=== PATIENT | male | born 1950 | race Caucasian/White ===

== ENCOUNTER → 2020-06-18 08:14 | Outpatient (CLI) | payer MEDICARE, OTHER, SELFPAY ==
--- NOTE | 2020-06-18 08:18 | CT_ITS ---
STUDY: CT ABDOMEN AND PELVIS WITH AND WITHOUT CONTRAST REASON FOR EXAM: Male, 69 years old. GROSS HEMATURIA/HX URINARY CALCULI/UNSPEC ABD PAIN RADIATION DOSAGE (If Supplied By Facility): CTDIvol = ( 17.54 ) mGy, DLP = ( 2187.74 ) mGycm TECHNIQUE: Transaxial images were obtained from the dome of the diaphragm to the symphysis pubis without oral contrast. IV 100mL Isovue-300 was administered. Sagittal and coronal images were reconstructed. Individualized dose optimization techniques were used for this CT. COMPARISON: None. FINDINGS: Minimal degree of increased linear markings in the lateral aspect of the right lower lobe suggestive of mild scarring. The visualized portions of the heart are within normal limits. Normal liver. Normal gallbladder and extrahepatic biliary system. Normal spleen. Normal pancreas. There is symmetric enlargement of the adrenal glands suggesting adrenal hyperplasia. There is a 4.1 mm calculus at the right ureteropelvic junction causing a mild degree of right hydronephrosis and minimal degree of right perinephric stranding. Normal left kidney. There is a small hiatal hernia. Normal small intestine. Normal colon. The appendix is visualized and appears normal. Normal abdominal aorta. Normal inferior vena cava. Normal retroperitoneum. Normal urinary bladder. There is enlargement of the prostate gland. It measures 5.9 cm by 4.5 cm. There is a small umbilical hernia containing fat. There are diffuse degenerative changes of the visualized lumbar spine. Grade 1 anterior listhesis of L5 on S1 with spondylolysis of the pars interarticularis of the L5 vertebrae. CT/CT Abd/Pelvis W/WO Contrast IMPRESSION: 4.1 mm calculus at the right ureteropelvic junction causing mild right hydronephrosis. Prostatic hypertrophy with indentation at the bladder base. Electronically Signed: Ramez Terry MD at 12:59 EDT , Service support ,
[2020-06-18 08:26] LABS: CREATININE FINGERSTICK 1.6 mg/dL (0.70-1.30)
== END ==
PROVIDERS: PCP Family Medicine; Referring Provider Nurse Practitioner Adult Health; Visit Provider Nurse Practitioner Adult Health
DX: R31.0 Gross hematuria (principal); R10.9 Unspecified abdominal pain; Z87.442 Personal history of urinary calculi
CPT/HCPCS: 74178; Q9967

== ENCOUNTER 2020-07-03 10:38 | Day surgery (SDC) | payer MEDICARE, OTHER, SELFPAY ==
--- NOTE | 2020-07-03 07:39 | PCM.HP.STD ---
Problem List (1) Obstruction of right ureteropelvic junction (UPJ) due to stone Status: Acute History of Present Illness Date of Admission: 07/03/20 Chief Complaint: Right UPJ stone The patient is a 69 year old male with a history of obstructing stone in the right proximal ureter plan to proceed with cystoscopy right stent placement and right ESWL he understands it may take multiple procedures. Past Medical History Allergies hydrocodone Adverse Reaction (Verified 06/26/20 12:33) Vomiting morphine Adverse Reaction (Verified 06/26/20 12:33) Vomiting Home Medications: Ambulatory Orders Medication Instructions Recorded Aspirin 325 mg PO DAILY 06/26/20 Atorvastatin Calcium [Lipitor] 10 mg PO QHS 06/26/20 Surgical History: no surgical history Smoking Status: Never smoker Tobacco Use: Non-smoker Review of Systems Constitutional: Denies: Chills, Fever, Weight Change HEENT: Denies: Head Aches, Sinus Congestion, Sinus Drainage Cardiovascular: Denies: Chest Pain, Palpitations Respiratory: Denies: Cough, Shortness of breath at rest, Sputum production Gastrointestinal: Denies: Abdominal Pain, Nausea, Vomiting Genitourinary: Denies: Dysuria Musculoskeletal: Denies: Joint Pain, Joint Tenderness Skin: Denies: Rash, Wounds Neurological: Denies: Numbness, Tingling, Focal weakness Psychiatric: Denies: Anxiety, Depression, Homicidal Ideations, Suicidal Ideations Hematologic/ Lymphatic: Denies: Easy Bruising, Easy Bleeding VTE Information - Inpt Only VTE Present on Admission: No VTE Mechan Device Prophylaxis: SCD's - Physical Exam General: Alert, Oriented x3, Cooperative HEENT: Atraumatic, PERRLA, EOMI, Normocephalic Neck: Supple, No JVD, Negative Carotid Bruits Lungs: Clear to auscultation, Normal air movement Cardiovascular: Regular rate, No murmurs Abdomen: Bowel Sounds Present, Soft, Non Tender Extremities: No edema, Capillary Refill Less than 3 Seconds Skin: No rashes, No breakdown Musculoskeletal: No Tenderness to Palpation of Joints or Extremities Neurological: Cranial nerves II-XII grossly intact Psych/Mental Status: Normal Affect, Appropriate Current Medications Cefazolin Sodium 2 gm/ Sodium (Chloride) 110 mls @ 150 mls/hr IV PREOP ONE Stop: 07/03/20 15:13 Assessment/Plan All Active Problems Obstruction of right ureteropelvic junction (UPJ) due to stone (Acute) Plan to proceed with right ESWL and right stent placement.
--- NOTE | 2020-07-03 07:48 | DCINST_ITS ---
Discharge Diet: Light diet - advance as tolerated Discharge Activity: Return to Normal Activity Instructions: Shock Wave Lithotripsy Allergies/Adverse Reactions: Allergies hydrocodone Adverse Reaction (Verified 06/26/20 12:33) Vomiting morphine Adverse Reaction (Verified 06/26/20 12:33) Vomiting Medications to take at Discharge Aspirin 325 mg PO DAILY 06/26/20 Atorvastatin Calcium [Lipitor] 10 mg PO QHS 06/26/20 Orders to be completed after discharge: Abdomen Single View [RAD] Time Frame: 07/03/20, Facility: [facility], Location: [facility] Primary Care Physician: Ruby Pinedo DO [Primary Care Provider] - Test Results: Test results from this visit will be discussed in further detail at your follow- up appointment, if applicable. Please Follow Up With: Rasta Lund MD When: please call to make an appointment.
[2020-07-03] MEDS: Lactated Ringers 1,000 ML 75 ML IV ×2 (07:50→14:34)
--- NOTE | 2020-07-03 10:41 | RAD_ITS ---
STUDY: X-RAY - ABDOMEN/PELVIS REASON FOR EXAM: Male, 69 years old. PREOP RIGHT KIDNEY STONE TECHNIQUE: Two AP supine views of the abdomen and pelvis. COMPARISON: None. FINDINGS: Normal visualized lung bases. There is an unremarkable bowel gas pattern. There is no demonstrated free abdominal air. The visualized liver, spleen and kidneys are grossly normal in size and morphology. There is a stone in the right kidney measures 7 mm. Normal soft tissue structures. Normal visualized osseous structures. RAD/Abdomen Single View IMPRESSION: There is a stone in the right kidney measures 7 mm. Electronically Signed: Kelly Castillo MD at 12:17 EDT Tel , Service support ,
[2020-07-03 11:19] VITALS: BP 135/77; PULSE 75; RESP 16; TEMP 37.2; O2SAT 97; BMI 25.9
--- NOTE | 2020-07-03 13:57 | OP.PCM_ITS ---
Problem List (1) Obstruction of right ureteropelvic junction (UPJ) due to stone Status: Acute Report of Operation Date of Procedure: 07/03/20 Pre-Operative Diagnosis: Right kidney stone Post-Operative Diagnosis: Same Surgery/Procedure Performed:: right ESWL Description of Surgical Findings:: Patient presents to the hospital for treatment of a kidney stone with shockwave lithotripsy. In the preoperative area and x-ray was done to confirm the location of the stone. The x-ray was reviewed and the stone location was reviewed. In the preoperative setting I spoke with the patient regarding the treatment of the stone how the treatment would be conducted and the expectations after surgery. The patient understands there is a risk of bleeding and infection. Also discussed the very rare risk of hematoma or damage to the kidney. We also discussed the risk that the shockwave machine will fail to break the stone adequately and that the patient may need other surgical procedures. We also discussed the possibility that the patient may need a stent after the procedure. After reviewing the procedure with the patient, the patient is signed the consent form all the patient's questions were addressed and was taken back to the operating room for treatment of a kidney stone. Patient was taken back to the operating room, patient was identified by the nursing staff, we identified the side of the treatment and the patient side of treatment had been marked by my initials. The patient underwent general anesthetic and was placed supine on the lithotripter table. We then used fluoro scopy to identify the stone on the right side. We then positioned the patient under the lithotripter and we used triangulation technique to identify the location of the stone and then we made sure that the stone was engaged in the F2 focal point of F2 Donier lithoprior machine. Once the patient was positioned appropriately and the stone was identified and placed in the F2 focal point of the lithotripter machine we then proceeded with shockwave lithotripsy. In the beginning the shockwave was delivered at a rate of 90 shocks per minute, we monitor the EKG for any ectopy. The power was slowly increased to 5 kV and subsequently at the 7 kV. We then proceeded with the treatment we move the therapy had around during the treatment to make sure the stone stayed in the F2 focal point during the entire treatment. Once the stone had broken up completely then we stopped the treatment a total of about 3000 shockwaves were delivered to the stone under fluoroscopic guidance. At this point the patient's anesthetic was reversed patient was extubated and taken back to the PACU in stable condition. The patient was given instructions to call the office to make an a follow-up appointment. Type of Anesthesia:: General - Admit VTE Documentation VTE Present on Admission: No VTE Mechan Device Prophylaxis: SCD's
[2020-07-03 14:00] VITALS: BP 127/82; BP 135/77; PULSE 72; RESP 16; TEMP 36.7; O2SAT 97
[2020-07-03 14:15] VITALS: BP 114/80; BP 135/77; PULSE 16; RESP 16; O2SAT 98
[2020-07-03 14:30] VITALS: BP 135/77; BP 138/85; PULSE 78; RESP 16; TEMP 36.6; O2SAT 99
[2020-07-03] MEDS: Ketorolac 15 MG/ML Vial IV (14:34)
[2020-07-03 15:25] VITALS: BP 128/72; BP 135/77; PULSE 58; RESP 16; TEMP 37.1; O2SAT 99
== END 2020-07-03 15:45 | disposition home or self-care (01) ==
LOC: SDC 10:39 → AC 10:45
PROVIDERS: PCP Family Medicine; Referring Provider Urology; Visit Provider Urology
PROC: (CPT 50590; principal; 2020-07-03 12:50)
DX: N13.5 Crossing vessel and stricture of ureter without hydronephrosis (principal); N20.0 Calculus of kidney; E78.00 Pure hypercholesterolemia, unspecified; Z86.73 Personal history of transient ischemic attack (TIA), and cerebral infarction without residual deficits; Z87.442 Personal history of urinary calculi; Z79.82 Long term (current) use of aspirin
CPT/HCPCS: 00873; 50590; 74018; J7120; J2405

== ENCOUNTER → 2020-07-25 08:43 | Outpatient (CLI) | payer MEDICARE, OTHER, SELFPAY ==
[2020-07-03 11:19] VITALS: BMI 25.9
--- NOTE | 2020-07-25 08:52 | RAD_ITS ---
STUDY: X-RAY - ABDOMEN/PELVIS REASON FOR EXAM: Male, 70 years old. CALCULUS OF URETER TECHNIQUE: Single AP view of the abdomen / pelvis. COMPARISON: Comparison is made with prior study dated 07/03/2020. FINDINGS: Normal visualized lung bases. There is an unremarkable bowel gas pattern. The previously seen 7 mm calculus in the right mid abdomen adjacent to the L2 transverse process on the right side is not seen at this time. Normal soft tissue structures. Normal visualized osseous structures. RAD/Abdomen Single View IMPRESSION: The previously seen calculus in the midportion of the right ureter is not seen at this time. Electronically Signed: Ramez Terry MD at 8:25 EDT , Service support ,
== END ==
PROVIDERS: PCP Family Medicine; Referring Provider Urology; Visit Provider Urology
DX: N20.1 Calculus of ureter (principal)
CPT/HCPCS: 74018